=== PATIENT | female | born 1980 | race Caucasian/White ===

== ENCOUNTER → 2016-10-30 | Day surgery (SDC) | payer OTHER ==
[~2016-10-30] MED LIST: DEMEROL HYDROCH50 MG PO; HYDROMORPHONE HC2 M1 PO; IBUPROFEN800 M1 PO; IBUPROFEN800 MG PO; PRENATAL1 TA2 PO; PROTONIX 20MG T20 MG PO
--- NOTE | 2016-10-30 14:23 | Operative Report ---
Operative/Inv Procedure Report Surgery Date: 10/30/16 Name of Procedure: left renal ESWL: fluoroscopy Pre-Operative Diagnosis: left renal stone (1cm) Post-Operative Diagnosis: same Estimated Blood Loss: none Surgeon/Speech Pathologist Assistant: JANETTE BLAKE MD Anesthesia: moderate sedation Specimens: none Complications: none Operative/Procedure Note Note: The patient was taken to the operating room and placed on the ESWL table in supine position. With the patient awake and participating, timeout was performed to confirm correct identity, procedure, laterality, anesthesia, and other pertinent carlo-operative information. After adequate anesthesia, the patient was positioned so that the patient's left flank was positioned over the table cut-out, overlying the dome of the treatment head. Once the patient was adequately sedated, fluoroscopy, as well as Renal ultrasound was used to locate the LEFT renal stone. Renal US confirmed the presence of the stone which measured it to be approximately 10 mm renal pelvis stone. The stone was clearly visible with fluoroscopy. Renal US revealed, no hydronephrosis, and no solid tumor, and presence of the stone. The position of the stone was optimized by using fluoroscopy in AP and oblique views;placing the stone within the ESWL c- arm crosshairs. Once the stone's position was optimized, the LEFT renal E.S.W.L. was initiated at low energy level. After noting the patient's tolerance to the shockwaves, the intensitiy was ramped up to maximum level. At the end of the procedure, the left renal stone had dissintegrated. Of note, a total of 2500 shockwaves were delivered to the stone. The patient tolerated the ESWL procedures well, was awakened, then taken to recovery in satisfactory condition via stretcher. The patient was dischared home with pain medications, diet orders, and intructions to catch fragments by straining the urine. The patient to to have follow-up renal ultrasound and KUB in 1 to 2 weeks, prior to follow-up visit in my office. He will then proceed with metabolic stone work-up. Discharge Disposition: Same Day Admissions CC: JANETTE BLAKE MD
== END ==
LOC: STS 01:24
DX: N20.0 Calculus of kidney (principal); K21.9 Gastro-esophageal reflux disease without esophagitis
CPT/HCPCS: 81025

== ENCOUNTER → 2016-12-11 | Day surgery (SDC) | payer OTHER ==
[~2016-12-11] VITALS: Ht 162.6 cm; Wt 86.2 kg
--- NOTE | 2016-12-11 16:49 | Operative Report ---
Operative/Inv Procedure Report Surgery Date: 12/11/16 Name of Procedure: left URETER eswl: cystoscopy with left stent insertion Pre-Operative Diagnosis: left ureter stone with colic Post-Operative Diagnosis: same Estimated Blood Loss: scant Surgeon/Arts Administrator Or Manager: JANETTE BLAKE MD Anesthesia: moderate sedation Specimens: none Complications: none Operative/Procedure Note Note: The patient was taken to the operating room and placed on the ESWL table in supine position. With the patient awake, timeout was performed. After adequate anesthesia and antibiotics, the patient's left flank was placed over the ESWL table cut-out, overlying the dome of the shockwave generator. C-arm fluroscopy, as well as renal US was used to locate the stone, and evaluate the left kidney. The stone was CLEARLY visible on fluroloscopy at the level of the mid-ureter. Renal US confimred moderate hydronephrosis, without stone seen in the kidney. The left ureter stone fragments were approximate 8 mm in size, and it's position was optimized with fluoroscopy at AP and Oblique views. After adequate anesthesia and antibiotics, the left ureter E.S.W.L. was initiated at low power levels x200 shocks. After noting the patient's tolerance to the shockwaves, the shockwave power level was quickly maximumized. Toward the end of the procedure, the composition of the stone had changed significantly indicating the pulverization of the ureter stone. A total of 3000 shockwaves were delivered to the stone in order to achieve adequate lithotrypsy. Then frog legged, draped and prepped in the usual surgical fashion. A 22 Indonesian cystoscope sheath with a 30 angle lens was inserted into the urethra and into the bladder without difficulty. Upon entering the bladder the bladder was noted to be free of tumor free of stone both orifices in orthotopic position. The left orifice was intubated with a 0.035 Glidewire which advanced into the left renal pelvis without significant difficulty. With this Glidewire a 6 x 22 Bard inlay stent was inserted without difficulty. Once the proximal coil reach the left renal pelvis, the Glidewire was removed and the stent remained in proper place both fluoroscopically and cystoscopically. Latter was then drained and the cystoscope was removed. The patient tolerated both procedures well, was awakened, and taken to recovery in satisfactory condition via stretcher. The pt will eventually be dischared to home with pain meds, diet orders, and intructions to catch fragments with straining the urine. The patient is to have follow-up renal ultrasound and KUB in 2 weeks, prior to follow-up visit in my office.. Findings: lynn, 6X[address] Discharge Disposition: PACU CC: LOU QUEZADA,JANETTE
== END ==
LOC: STS 02:10
DX: N13.2 Hydronephrosis with renal and ureteral calculous obstruction (principal); K21.9 Gastro-esophageal reflux disease without esophagitis
CPT/HCPCS: 36415; 81025; C2617; J0131; J0690; J1885; J2405